=== PATIENT | female | born 1965 | race Caucasian/White ===

== ENCOUNTER 2021-07-27 04:39 | Day surgery (SDC) | payer OTHER ==
[2021-07-26 11:47] VITALS: BMI 24.2
[2021-07-27] MEDS ORDERED: SODIUM CHLORIDE 0.9% P/F 10 ML VIAL IJ ONE (10:44)
[2021-07-27] MEDS ORDERED: DEXAMETHASONE SOD PHOSPHATE 4 MG/1 ML VIAL ONE (10:44)
[2021-07-27] MEDS ORDERED: KETOROLAC TROMETHAMINE 30 MG/1 ML VIAL ONE (10:44)
[2021-07-27] MEDS ORDERED: LIDOCAINE HCL/PF 2% SDV 5ML VIAL ONE (10:44)
[2021-07-27] MEDS ORDERED: ceFAZolin SODIUM 1 GM VIAL ONE (10:44)
[2021-07-27] MEDS ORDERED: SUCCINYLCHOLINE CHLORIDE 200 MG/10 ML SYRINGE ONE (10:45)
[2021-07-27] MEDS ORDERED: MIDAZOLAM HCL 2 MG/2 ML SINGLE DOSE VIAL ONE ×2 (10:45)
[2021-07-27] MEDS ORDERED: PROPOFOL 20 ML ONE ×3 (10:45)
[2021-07-27] MEDS ORDERED: LIDOCAINE HCL 2% JELLY (5 ML/TUBE) ONE (11:09)
[2021-07-27] MEDS ORDERED: BUPIVACAINE HCL/PF 0.5% (5MG/ML) 10 ML VIAL ONE (11:09)
[2021-07-27] MEDS ORDERED: ceFAZolin SODIUM 1 GM VIAL IVPB ONE (11:30)
[2021-07-27] MEDS ORDERED: BUPIVACAINE HCL/PF 0.5% (5 MG/ML) 30 ML VIAL IJ ONE (13:07)
[2021-07-27] MEDS ORDERED: LIDOCAINE HCL 1%, 10 MG/ML (20ML VIAL) INF ONE (13:07)
[2021-07-27] MEDS ORDERED: LACTATED RINGERS SOLUTION 1,000 ML IV SCH (14:15)
[2021-07-27] MEDS ORDERED: ONDANSETRON 4 MG/2 ML VIAL IVPUSH PRN (14:15)
[2021-07-27] MEDS ORDERED: oxyCODONE HCL 5 MG TABLET PO PRN ×2 (14:15)
[2021-07-27 15:52] VITALS: TEMP 98
[2021-07-27 16:39] VITALS: BP 120/60; PULSE 64
== END 2021-07-27 16:15 | disposition home or self-care (01) ==
LOC: JASU-SURG 04:39
PROVIDERS: ATTEND Podiatrist Foot Surgery
PROC: 0QSN04Z Reposition Right Metatarsal with Internal Fixation Device, Open Approach (ICD-10-PCS; 2021-07-27)
PROC: 0QSN04Z Reposition Right Metatarsal with Internal Fixation Device, Open Approach (ICD-10-PCS; 2021-07-27)
PROC: 0QSN04Z Reposition Right Metatarsal with Internal Fixation Device, Open Approach (ICD-10-PCS; 2021-07-27)
PROC: 0QSN04Z Reposition Right Metatarsal with Internal Fixation Device, Open Approach (ICD-10-PCS; principal; 2021-07-27 11:00)
DX: M71.171 Other infective bursitis, right ankle and foot (principal); M21.6X9 Other acquired deformities of unspecified foot
CPT/HCPCS: 73630-TC-RT-FY; 94760

== ENCOUNTER 2022-07-26 04:23 | Day surgery (SDC) | payer OTHER ==
[2022-07-19 15:12] VITALS: BMI 24.2
[2022-07-26] MEDS ORDERED: PROPOFOL 20 ML ONE ×2 (13:14→14:08)
[2022-07-26] MEDS ORDERED: DEXAMETHASONE SOD PHOSPHATE 4 MG/1 ML VIAL ONE (13:14)
[2022-07-26] MEDS ORDERED: ONDANSETRON 4 MG/2 ML VIAL ONE (13:14)
[2022-07-26] MEDS ORDERED: LIDOCAINE HCL 1%, 10 MG/ML (20ML VIAL) ONE (13:32)
[2022-07-26] MEDS ORDERED: MIDAZOLAM HCL 2 MG/2 ML SINGLE DOSE VIAL ONE (13:55)
[2022-07-26] MEDS ORDERED: LIDOCAINE HCL 1%, 10 MG/ML (20ML VIAL) NR ONE (14:17)
[2022-07-26] MEDS ORDERED: BUPIVACAINE HCL/PF 0.5% (5MG/ML) 10 ML VIAL IJ ONE (14:17)
[2022-07-26 16:42] VITALS: TEMP 97.3
[2022-07-26 17:45] VITALS: BP 106/63; PULSE 65; RESP 16
== END 2022-07-26 17:15 | disposition home or self-care (01) ==
LOC: JASU-SURG 04:23
PROVIDERS: ATTEND Podiatrist Foot Surgery
PROC: 0KNW0ZZ Release Left Foot Muscle, Open Approach (ICD-10-PCS; principal; 2022-07-26 13:00)
DX: M72.2 Plantar fascial fibromatosis (principal)
CPT/HCPCS: 88304-TC; 94760

== ENCOUNTER 2024-09-28 16:06 | Inpatient (IN) | payer OTHER ==
[2024-09-28 16:15] VITALS: BMI 25.0
[2024-09-28] MEDS ORDERED: ACETAMINOPHEN INJECTION 100 ML ONE (17:08)
[2024-09-28] MEDS: SODIUM CHLORIDE 0.9% 500 ML INFUS.BAG IV ONE ×2 (17:15→19:11)
[2024-09-28] MEDS: ACETAMINOPHEN 1000 MG/100 ML BAG IVPB ONE (17:15)
[2024-09-28 17:16] LABS: BASO % 0.5 % (0-2.0); EOS % 0.3 % (0-4.5); HEMATOCRIT 35.9 % (32.4-45.2); HEMOGLOBIN 11.9 GM/dL (10.7-15.3); LYMPH % 10.1 % (8-40); MCH 31.2 pg (25.7-33.7); MCHC 33.2 g/dl (32.0-36.0); MEAN PLT VOLUME 8.5 fl (7.5-11.1); MONO % 6.3 % (3.8-10.2); NEUT % 82.8 % (42.8-82.8); PLATELET COUNT 196 10^3/uL (134-434); RBC 3.82 M/mm3 (3.60-5.2); RDW 12.9 % (11.6-15.6); WHITE BLOOD COUNT 13.9 K/mm3 (4.0-10.0)
[2024-09-28 17:33] LABS: POTASSIUM 3.7 mmol/L (3.5-5.1)
[2024-09-28 17:35] LABS: CALCIUM 8.9 mg/dL (8.5-10.1)
[2024-09-28 17:36] LABS: ALBUMIN 3.2 g/dl (3.4-5.0); BLOOD UREA NITROGEN 15.1 mg/dL (7-18)
[2024-09-28 17:39] LABS: CREATININE 1.1 mg/dL (0.55-1.3)
[2024-09-28 17:41] LABS: BILIRUBIN,TOTAL 0.9 mg/dL (0.2-1); TOT PROT 6.8 g/dl (6.4-8.2)
[2024-09-28 18:37] LABS: EPI CELLS 12 /uL (0-25.1); HYALINE CASTS 718 /uL (0-3.1); URINE APPEARANCE TURBID; URINE BACTERIA >9,000 /uL (0-1359); URINE BILIRUBIN 1+ (NEGATIVE); URINE COLOR ORANGE; URINE GLUCOSE (UA) NEGATIVE (NEGATIVE); URINE KETONE TRACE (NEGATIVE); URINE LEUK ESTERASE 3+ (NEGATIVE); URINE NITRITE NEGATIVE (NEGATIVE); URINE PROTEIN 3+ (NEGATIVE); URINE WBC 28641 /uL (0-25.8)
[2024-09-28] MEDS ORDERED: PIPERACILLIN/TAZOB 4.5 GM 4.5 GM/100 ML BAG IVPB ONE (19:03)
[2024-09-28] MEDS: PIPERACILLIN/TAZOB 4.5 GM 4.5 GM in DEXTROSE 5%-WATER 100 ML IVPB ONE (19:11)
[2024-09-28 19:28] LABS: URINE RBC 1407.7 /uL (0-23.9); YEAST NONE SEEN (NEGATIVE)
[2024-09-28] MEDS ORDERED: VANCOMYCIN 1 GRAM (PRE-DOCKED) 1,000 MG/250 ML BAG IVPB ONE (19:46)
[2024-09-28] MEDS: VANCOMYCIN 1,000 MG in DEXTROSE 5%-WATER - 250 ML IVPB ONE (19:59)
[2024-09-28] MEDS ORDERED: DOCUSATE SODIUM 100 MG CAPSULE (FP) PO PRN (20:29)
[2024-09-28] MEDS: LACTATED RINGERS SOLUTION 1000 ML INFUS.BAG IV ONE (21:19)
[2024-09-28] MEDS: D5-1/2NS+20 MEQ KCL - 20 MEQ/1,000 ML INFUS.BAG IV SCH (21:56)
[2024-09-28] MEDS ORDERED: ACETAMINOPHEN 325 MG TABLET (FP) ONE (23:13)
[2024-09-28] MEDS: ACETAMINOPHEN 325 MG TABLET (FP) PO PRN (23:19)
[2024-09-29] MEDS ORDERED: PIPERACILLIN/TAZOB 3.375 GM 3.375 GM/50 ML BAG IVPB ONE ×2 (03:53→09:50)
[2024-09-29] MEDS: PIPERACILLIN/TAZOB 3.375 GM 3.375 GM in DEXTROSE 5%-WATER - 50 ML IVPB SCH (03:56)
[2024-09-29 07:18] LABS: HEMATOCRIT 31.8 % (32.4-45.2); HEMOGLOBIN 10.8 GM/dL (10.7-15.3); MCH 31.9 pg (25.7-33.7); MCHC 34.1 g/dl (32.0-36.0); MEAN CELL VOLUME 93.6 fl (80-96); MEAN PLT VOLUME 8.7 fl (7.5-11.1); PLATELET COUNT 156 10^3/uL (134-434); WHITE BLOOD COUNT 9.5 K/mm3 (4.0-10.0)
[2024-09-29 07:30] LABS: POTASSIUM 3.6 mmol/L (3.5-5.1)
[2024-09-29 07:35] LABS: CALCIUM 8.3 mg/dL (8.5-10.1)
[2024-09-29 07:36] LABS: BLOOD UREA NITROGEN 13.2 mg/dL (7-18)
[2024-09-29 07:39] LABS: CREATININE 0.9 mg/dL (0.55-1.3)
[2024-09-29 07:41] LABS: BILIRUBIN,TOTAL 1.2 mg/dL (0.2-1); TOT PROT 5.6 g/dl (6.4-8.2)
[2024-09-29 07:51] LABS: ALBUMIN 2.5 g/dl (3.4-5.0)
[2024-09-29] MEDS ORDERED: VANCOMYCIN 1,000 MG in DEXTROSE 5%-WATER - 250 ML IVPB SCH (08:00)
[2024-09-29] MEDS ORDERED: VANCOMYCIN 1 GRAM (PRE-DOCKED) 1,000 MG/250 ML BAG IVPB ONE (09:50)
[2024-09-29] MEDS ORDERED: ACETAMINOPHEN 325 MG TABLET (FP) ONE (09:50)
[2024-09-29] MEDS: VANCOMYCIN 1,000 MG in DEXTROSE 5%-WATER - 250 ML IVPB SCH (11:16)
[2024-09-29 13:27] LABS: ANISOCYTOSIS 0; MACROCYTOSIS 0
[2024-09-29] MEDS: HEPARIN NA (PORCINE) 5,000 UNITS/ML 1ML VIAL SQ SCH (13:35)
[2024-09-29] MEDS: IBUPROFEN 400 MG TABLET (FP) PO ONE (16:52)
[2024-09-29] MEDS: VANCOMYCIN/WATER FOR INJ (PEG) 1,000 MG/200 ML BAG IVPB SCH (22:44)
[2024-09-30 06:42] VITALS: PULSE 77
[2024-09-30] MEDS ORDERED: PIPERACILLIN/TAZOB 3.375 GM 3.375 GM in DEXTROSE 5%-WATER - 50 ML IVPB SCH ×2 (07:07→10:00)
[2024-09-30] MEDS: PIPERACILLIN/TAZOB 3.375 GM 3.375 GM in DEXTROSE 5%-WATER - 50 ML IVPB SCH (08:14)
[2024-09-30 09:00] LABS: HEMATOCRIT 31.4 % (32.4-45.2); HEMOGLOBIN 10.7 GM/dL (10.7-15.3); MCH 31.7 pg (25.7-33.7); MCHC 34.1 g/dl (32.0-36.0); MEAN CELL VOLUME 93.2 fl (80-96); MEAN PLT VOLUME 8.9 fl (7.5-11.1); PLATELET COUNT 164 10^3/uL (134-434); RBC 3.37 M/mm3 (3.60-5.2); RDW 13.3 % (11.6-15.6); WHITE BLOOD COUNT 5.7 K/mm3 (4.0-10.0)
[2024-09-30 09:18] LABS: POTASSIUM 3.7 mmol/L (3.5-5.1)
[2024-09-30 09:23] LABS: ALBUMIN 2.5 g/dl (3.4-5.0); BLOOD UREA NITROGEN 11.4 mg/dL (7-18); CALCIUM 8.5 mg/dL (8.5-10.1)
[2024-09-30 09:26] LABS: CREATININE 0.8 mg/dL (0.55-1.3)
[2024-09-30 09:28] LABS: BILIRUBIN,TOTAL 0.6 mg/dL (0.2-1); TOT PROT 5.7 g/dl (6.4-8.2)
[2024-09-30] MEDS: PIPERACILLIN/TAZOB 3.375 GM 50 ML IVPB SCH (11:29)
[2024-09-30 15:06] VITALS: BP 106/64; RESP 16; TEMP 98.8
== END 2024-09-30 16:10 | disposition left against medical advice (07) | DRG 872 ==
LOC: JER 16:06 → JERBED 20:07 → J4W 09-29 13:02
PROVIDERS: ADMIT Internal Medicine; ATTEND Family Medicine
DX: A41.9 Sepsis, unspecified organism (principal); N10 Acute pyelonephritis; F17.210 Nicotine dependence, cigarettes, uncomplicated; E78.5 Hyperlipidemia, unspecified
CPT/HCPCS: 36415; 74177-TC; 80053; 81003; 83735; 85025; 85027; 87086; 87186; 93005; 93010; 99285-25; J0131; J1644; Q9967

== ENCOUNTER 2024-10-01 10:41 | Observation (INO) | payer OTHER ==
[2024-10-01] MEDS ORDERED: MEROPENEM 1 GM VIAL (RESTRICTED TO ID) IVPB ONE (12:10)
[2024-10-01 12:53] LABS: EOS % 1.9 % (0-4.5); LYMPH % 29.5 % (8-40); MCH 31.2 pg (25.7-33.7); MCHC 33.4 g/dl (32.0-36.0); MEAN CELL VOLUME 93.4 fl (80-96); MEAN PLT VOLUME 8.2 fl (7.5-11.1); MONO % 11.9 % (3.8-10.2); NEUT % 55.7 % (42.8-82.8); PLATELET COUNT 212 10^3/uL (134-434); RBC 3.21 M/mm3 (3.60-5.2); RDW 13.6 % (11.6-15.6)
[2024-10-01] MEDS: MEROPENEM 1 GM in DEXTROSE 5%-WATER 100 ML IVPB ONE (13:00)
[2024-10-01 13:17] LABS: POTASSIUM 3.6 mmol/L (3.5-5.1)
[2024-10-01 13:20] LABS: ALBUMIN 2.7 g/dl (3.4-5.0); CALCIUM 8.8 mg/dL (8.5-10.1)
[2024-10-01 13:23] LABS: CREATININE 0.7 mg/dL (0.55-1.3)
[2024-10-01 13:25] LABS: BILIRUBIN,TOTAL 0.6 mg/dL (0.2-1); TOT PROT 6.2 g/dl (6.4-8.2)
[2024-10-01 13:29] LABS: EPI CELLS 29 /uL (0-25.1); HYALINE CASTS 0 /uL (0-3.1); URINE APPEARANCE CLOUDY; URINE BACTERIA 1 /uL (0-1359); URINE BILIRUBIN NEGATIVE (NEGATIVE); URINE COLOR DK YELLOW; URINE GLUCOSE (UA) NEGATIVE (NEGATIVE); URINE KETONE NEGATIVE (NEGATIVE); URINE LEUK ESTERASE 2+ (NEGATIVE); URINE NITRITE NEGATIVE (NEGATIVE); URINE PROTEIN 1+ (NEGATIVE); URINE RBC 1165 /uL (0-23.9); URINE WBC 216 /uL (0-25.8)
[2024-10-01] MEDS ORDERED: PIPERACILLIN/TAZOB 4.5 GM 4.5 GM/100 ML BAG IVPB ONE (18:10)
[2024-10-01] MEDS: PIPERACILLIN/TAZOB 4.5 GM 4.5 GM in DEXTROSE 5%-WATER 100 ML IVPB SCH (18:27)
[2024-10-02] MEDS ORDERED: PIPERACILLIN/TAZOB 4.5 GM 4.5 GM/100 ML BAG IVPB ONE (01:53)
[2024-10-02 05:11] VITALS: BMI 24.5
[2024-10-02 09:52] LABS: HEMOGLOBIN 9.5 GM/dL (10.7-15.3); MCH 31.2 pg (25.7-33.7); MCHC 33.9 g/dl (32.0-36.0); MEAN PLT VOLUME 8.3 fl (7.5-11.1); PLATELET COUNT 192 10^3/uL (134-434); RBC 3.04 M/mm3 (3.60-5.2); RDW 13.5 % (11.6-15.6)
[2024-10-02 10:13] LABS: POTASSIUM 3.3 mmol/L (3.5-5.1)
[2024-10-02 10:34] LABS: ANISOCYTOSIS 0; MACROCYTOSIS 0
[2024-10-02 10:53] LABS: ALBUMIN 2.4 g/dl (3.4-5.0); BLOOD UREA NITROGEN 9.7 mg/dL (7-18); CALCIUM 8.6 mg/dL (8.5-10.1)
[2024-10-02 10:57] LABS: CREATININE 0.6 mg/dL (0.55-1.3)
[2024-10-02 10:58] LABS: BILIRUBIN,TOTAL 0.5 mg/dL (0.2-1); TOT PROT 5.8 g/dl (6.4-8.2)
[2024-10-02] MEDS ORDERED: MEROPENEM 1 GM in DEXTROSE 5%-WATER 100 ML IVPB SCH (11:00)
[2024-10-02] MEDS: PIPERACILLIN/TAZOB 4.5 GM 4.5 GM in DEXTROSE 5%-WATER 100 ML IVPB SCH (11:48)
[2024-10-02] MEDS: MEROPENEM-0.9% SODIUM CHLORIDE 1 GM/50 ML BAG IVPB SCH (11:49)
[2024-10-02] MEDS: POTASSIUM CHLORIDE ORAL LIQUID 20 MEQ/15 ML PO ONE (17:26)
[2024-10-03] MEDS: ENOXAPARIN NA (PORCINE) 40 MG/0.4 ML DISP.SYRIN SQ SCH (09:53)
[2024-10-03 10:46] LABS: BASO % 1.1 % (0-2.0); EOS % 3.4 % (0-4.5); HEMATOCRIT 30.6 % (32.4-45.2); HEMOGLOBIN 10.5 GM/dL (10.7-15.3); LYMPH % 34.7 % (8-40); MCHC 34.2 g/dl (32.0-36.0); MEAN CELL VOLUME 93.5 fl (80-96); MEAN PLT VOLUME 8.4 fl (7.5-11.1); MONO % 11.4 % (3.8-10.2); NEUT % 49.4 % (42.8-82.8); PLATELET COUNT 261 10^3/uL (134-434); RBC 3.27 M/mm3 (3.60-5.2); RDW 13.6 % (11.6-15.6); WHITE BLOOD COUNT 4.5 K/mm3 (4.0-10.0)
[2024-10-03 11:26] LABS: POTASSIUM 3.7 mmol/L (3.5-5.1)
[2024-10-03 11:32] LABS: ALBUMIN 2.7 g/dl (3.4-5.0); BLOOD UREA NITROGEN 8.5 mg/dL (7-18)
[2024-10-03 11:35] LABS: CREATININE 0.6 mg/dL (0.55-1.3)
[2024-10-03 11:37] LABS: BILIRUBIN,TOTAL 0.5 mg/dL (0.2-1); TOT PROT 6.5 g/dl (6.4-8.2)
[2024-10-04 00:12] VITALS: PULSE 62; RESP 17
[2024-10-04 06:43] VITALS: BP 91/61; TEMP 98.2
== END 2024-10-04 15:36 | disposition home or self-care (01) ==
LOC: JER 10:41 → JERBED 13:50 → INTOOBSV 13:50 → UNDOADMOB 13:50 → JERBED 18:50 → J8W 10-02 04:35
PROVIDERS: ADMIT Internal Medicine; ATTEND Internal Medicine
PROC: 3E03329 Introduction of Other Anti-infective into Peripheral Vein, Percutaneous Approach (ICD-10-PCS; principal; 2024-10-01)
PROC: 3E023GC Introduction of Other Therapeutic Substance into Muscle, Percutaneous Approach (ICD-10-PCS; 2024-10-01)
DX: N30.00 Acute cystitis without hematuria (principal); B96.20 Unspecified Escherichia coli [E. coli] as the cause of diseases classified elsewhere; N12 Tubulo-interstitial nephritis, not specified as acute or chronic; N31.9 Neuromuscular dysfunction of bladder, unspecified; E78.5 Hyperlipidemia, unspecified; Z87.440 Personal history of urinary (tract) infections; F17.200 Nicotine dependence, unspecified, uncomplicated
CPT/HCPCS: 36415; 80053; 81003; 85025; 87040; 87086; 99285-25; G0378

== ENCOUNTER → 2024-10-09 | Day surgery (SDC) | payer OTHER ==
[2024-10-13 09:29] VITALS: BP 99/58; PULSE 81; RESP 18; TEMP 98.1
== END | disposition home or self-care (01) ==
LOC: FINFUSION 11:40
PROVIDERS: ATTEND Internal Medicine
DX: N12 Tubulo-interstitial nephritis, not specified as acute or chronic (principal); N39.0 Urinary tract infection, site not specified
CPT/HCPCS: 96365

== ENCOUNTER 2024-10-10 11:24 | Day surgery (SDC) | payer OTHER ==
[2024-10-10 11:42] VITALS: BP 128/75; PULSE 84; RESP 18; TEMP 97.8
[2024-10-10] MEDS: ERTAPENEM SODIUM 1 GM in SODIUM CHLORIDE 50 ML IVPB ONE (11:54)
== END 2024-10-10 12:57 | disposition home or self-care (01) ==
LOC: FINFUSION 11:24 → FM/S 11:27 → FINFUSION 12:57
PROVIDERS: ATTEND Internal Medicine
DX: N12 Tubulo-interstitial nephritis, not specified as acute or chronic (principal); N39.0 Urinary tract infection, site not specified
CPT/HCPCS: 96365

== ENCOUNTER 2024-10-11 11:23 | Day surgery (SDC) | payer OTHER ==
[2024-10-11] MEDS: ERTAPENEM SODIUM 1 GM in SODIUM CHLORIDE 50 ML IVPB ONE (11:43)
[2024-10-11 12:22] VITALS: BP 100/65; PULSE 75; RESP 16; TEMP 98.2
== END 2024-10-11 12:23 | disposition home or self-care (01) ==
LOC: FINFUSION 11:23 → FM/S 11:25 → FINFUSION 12:23
PROVIDERS: ATTEND Internal Medicine
DX: N12 Tubulo-interstitial nephritis, not specified as acute or chronic (principal); N39.0 Urinary tract infection, site not specified
CPT/HCPCS: 96365

== ENCOUNTER 2024-10-12 11:34 | Day surgery (SDC) | payer OTHER ==
[2024-10-12] MEDS: ERTAPENEM SODIUM 1 GM in SODIUM CHLORIDE 50 ML IVPB ONE (12:00)
[2024-10-12 12:45] VITALS: BP 92/56; PULSE 71; RESP 17; TEMP 98
== END 2024-10-12 12:35 | disposition home or self-care (01) ==
LOC: FINFUSION 11:34 → FM/S 11:36 → FINFUSION 12:35
PROVIDERS: ATTEND Internal Medicine
DX: N12 Tubulo-interstitial nephritis, not specified as acute or chronic (principal); N39.0 Urinary tract infection, site not specified
CPT/HCPCS: 96365

== ENCOUNTER 2024-10-13 11:32 | Day surgery (SDC) | payer OTHER ==
[2024-10-13] MEDS: ERTAPENEM SODIUM 1 GM in SODIUM CHLORIDE 50 ML IVPB ONE (12:15)
[2024-10-13 12:29] LABS: HEMATOCRIT 34.1 % (32.4-45.2); HEMOGLOBIN 11.2 G/dL (10.7-15.3); MCH 31.2 pg (25.7-33.7); MCHC 32.9 g/dl (32.0-36.0); MEAN PLT VOLUME 8.4 fl (7.5-11.1); PLATELET COUNT 395.1 10^3/uL (134-434); RBC 3.59 10^6/uL (3.60-5.2); RDW 14.3 % (11.6-15.6); WHITE BLOOD COUNT 4.6 10^3/uL (4.0-10.8)
[2024-10-13 13:13] VITALS: BP 93/59; PULSE 63; RESP 18; TEMP 97.8
[2024-10-13 16:52] LABS: BILIRUBIN,TOTAL 0.4 mg/dl (0.2-1); CALCIUM 9.6 mg/dl (8.5-10.1); CREATININE 0.8 mg/dl (0.6-1.3); POTASSIUM 4.2 mmol/L (3.5-5.1); TOT PROT 6.9 g/dl (6.4-8.2)
== END 2024-10-13 12:50 | disposition home or self-care (01) ==
LOC: FINFUSION 11:32 → FM/S 11:33 → FINFUSION 12:50
PROVIDERS: ATTEND Internal Medicine
DX: N12 Tubulo-interstitial nephritis, not specified as acute or chronic (principal); N39.0 Urinary tract infection, site not specified
CPT/HCPCS: 36415; 80053; 85027; 96365

== ENCOUNTER 2024-10-14 11:33 | Day surgery (SDC) | payer OTHER ==
[2024-10-14] MEDS: ERTAPENEM SODIUM 1 GM in SODIUM CHLORIDE 50 ML IVPB ONE (12:02)
[2024-10-14 12:11] VITALS: TEMP 97.8
[2024-10-14 12:31] VITALS: BP 100/58; PULSE 76; RESP 19
== END 2024-10-14 12:32 | disposition home or self-care (01) ==
LOC: FINFUSION 11:33 → FM/S 11:34 → FINFUSION 12:32
PROVIDERS: ATTEND Internal Medicine
DX: N12 Tubulo-interstitial nephritis, not specified as acute or chronic (principal); N39.0 Urinary tract infection, site not specified
CPT/HCPCS: 96365

== ENCOUNTER 2024-10-15 11:34 | Day surgery (SDC) | payer OTHER ==
[2024-10-15 12:10] LABS: HEMOGLOBIN 10.7 G/dL (10.7-15.3); MCH 31.7 pg (25.7-33.7); MCHC 33.6 g/dl (32.0-36.0); MEAN CELL VOLUME 94.5 fl (80-96); MEAN PLT VOLUME 8.3 fl (7.5-11.1); PLATELET COUNT 332.2 10^3/uL (134-434); RBC 3.39 10^6/uL (3.60-5.2); RDW 13.8 % (11.6-15.6); WHITE BLOOD COUNT 4.5 10^3/uL (4.0-10.8)
[2024-10-15] MEDS: ERTAPENEM SODIUM 1 GM in SODIUM CHLORIDE 50 ML IVPB ONE (12:10)
[2024-10-15 12:51] VITALS: BP 109/80; PULSE 68; RESP 16; TEMP 98.2
[2024-10-15 16:49] LABS: ALBUMIN 3.9 g/dl (3.4-5.0); BILIRUBIN,TOTAL 0.3 mg/dl (0.2-1); CALCIUM 9.4 mg/dl (8.5-10.1); CREATININE 0.7 mg/dl (0.6-1.3); POTASSIUM 3.9 mmol/L (3.5-5.1); TOT PROT 6.6 g/dl (6.4-8.2)
== END 2024-10-15 12:55 | disposition home or self-care (01) ==
LOC: FINFUSION 11:34 → FM/S 11:37 → FINFUSION 12:55
PROVIDERS: ATTEND Internal Medicine
DX: N12 Tubulo-interstitial nephritis, not specified as acute or chronic (principal); N39.0 Urinary tract infection, site not specified
CPT/HCPCS: 36415; 80053; 85027; 96365

== ENCOUNTER 2024-10-16 11:31 | Day surgery (SDC) | payer OTHER ==
[2024-10-16] MEDS: ERTAPENEM SODIUM 1 GM in SODIUM CHLORIDE 50 ML IVPB SCH (11:45)
[2024-10-16 13:06] VITALS: BP 115/65; PULSE 69; RESP 16; TEMP 98.1
== END 2024-10-16 13:07 | disposition home or self-care (01) ==
LOC: FINFUSION 11:31 → FM/S 11:32 → FINFUSION 13:07
PROVIDERS: ATTEND Internal Medicine
DX: N12 Tubulo-interstitial nephritis, not specified as acute or chronic (principal); N39.0 Urinary tract infection, site not specified
CPT/HCPCS: 96365

== ENCOUNTER 2024-10-17 11:07 | Day surgery (SDC) | payer OTHER ==
[2024-10-17] MEDS: ERTAPENEM SODIUM 1 GM in SODIUM CHLORIDE 50 ML IVPB ONE (11:39)
[2024-10-17 12:37] VITALS: BP 98/55; PULSE 64; RESP 16; TEMP 98.4
== END 2024-10-17 12:25 | disposition home or self-care (01) ==
LOC: FINFUSION 11:07 → FM/S 11:07 → FINFUSION 12:25
PROVIDERS: ATTEND Internal Medicine
DX: N12 Tubulo-interstitial nephritis, not specified as acute or chronic (principal); N39.0 Urinary tract infection, site not specified
CPT/HCPCS: 96365

== ENCOUNTER 2024-10-18 11:28 | Day surgery (SDC) | payer OTHER ==
[2024-10-18] MEDS: ERTAPENEM SODIUM 1 GM in SODIUM CHLORIDE 50 ML IVPB ONE (11:40)
[2024-10-18 12:17] VITALS: BP 100/60; PULSE 72; RESP 18; TEMP 98.2
== END 2024-10-18 12:17 | disposition home or self-care (01) ==
LOC: FINFUSION 11:28 → FM/S 11:30 → FINFUSION 12:17
PROVIDERS: ATTEND Internal Medicine
DX: N12 Tubulo-interstitial nephritis, not specified as acute or chronic (principal); N39.0 Urinary tract infection, site not specified
CPT/HCPCS: 96365

== ENCOUNTER 2024-12-09 09:33 | Inpatient (IN) | payer OTHER ==
[2024-12-09 09:46] VITALS: BMI 24.2
[2024-12-09 11:08] LABS: EPI CELLS 3 /uL (0-25.1); HYALINE CASTS 0 /uL (0-3.1); PH,URINE 5.5 (5.0-8.0); URINE APPEARANCE CLOUDY; URINE BACTERIA >9,000 /uL (0-1359); URINE BILIRUBIN NEGATIVE (NEGATIVE); URINE COLOR DK YELLOW; URINE GLUCOSE (UA) NEGATIVE (NEGATIVE); URINE KETONE TRACE (NEGATIVE); URINE LEUK ESTERASE 2+ (NEGATIVE); URINE NITRITE POSITIVE (NEGATIVE); URINE PROTEIN 2+ (NEGATIVE); URINE WBC 2874 /uL (0-25.8)
[2024-12-09 11:41] LABS: YEAST NOT PRESENT (NEGATIVE)
[2024-12-09 11:42] LABS: URINE RBC 604 /uL (0-23.9)
[2024-12-09] MEDS ORDERED: CEFTRIAXONE 1 G/50 ML PREMIX 50 ML IVPB ONE (12:28)
[2024-12-09] MEDS ORDERED: ACETAMINOPHEN INJECTION 100 ML ONE (12:28)
[2024-12-09 12:31] LABS: BASO % 0.6 % (0-2.0); EOS % 0.7 % (0-4.5); HEMATOCRIT 36.4 % (32.4-45.2); HEMOGLOBIN 12.3 GM/dL (10.7-15.3); LYMPH % 16.8 % (8-40); MCH 31.2 pg (25.7-33.7); MCHC 33.8 g/dl (32.0-36.0); MEAN CELL VOLUME 92.4 fl (80-96); MEAN PLT VOLUME 8.2 fl (7.5-11.1); MONO % 9.2 % (3.8-10.2); NEUT % 72.7 % (42.8-82.8); PLATELET COUNT 173 10^3/uL (134-434); RBC 3.94 M/mm3 (3.60-5.2); RDW 13.8 % (11.6-15.6); WHITE BLOOD COUNT 9.7 K/mm3 (4.0-10.0)
[2024-12-09 12:34] LABS: VENOUS O2 SATURATION 37.7 % (70-80); VENOUS PCO2 42.8 mmHg (38-52); VENOUS PH 7.416 (7.310-7.410)
[2024-12-09 12:38] LABS: INR 1.08 (0.83-1.09); PROTHROMBIN TIME (PATIENT) 12.4 SEC (9.7-13.0)
[2024-12-09 12:41] LABS: ACTIVATED PTT 29.8 SECONDS (25.2-36.5)
[2024-12-09] MEDS: SODIUM CHLORIDE 0.9% 1000 ML INFUS.BAG IV STA (12:41)
[2024-12-09] MEDS: ACETAMINOPHEN 1000 MG/100 ML BAG IVPB ONE (12:41)
[2024-12-09] MEDS: CEFTRIAXONE 1,000 MG in DEXTROSE 5%-WATER - 50 ML IVPB ONE (12:41)
[2024-12-09] MEDS: CEPHALEXIN MONOHYDRATE 500 MG CAPSULE (UD) PO ONE (12:42)
[2024-12-09 12:57] LABS: CALCIUM 8.9 mg/dL (8.5-10.1)
[2024-12-09 12:58] LABS: ALBUMIN 3.3 g/dl (3.4-5.0); BLOOD UREA NITROGEN 13.5 mg/dL (7-18)
[2024-12-09 13:01] LABS: CREATININE 0.7 mg/dL (0.55-1.3)
[2024-12-09 13:03] LABS: BILIRUBIN,TOTAL 0.9 mg/dL (0.2-1); TOT PROT 7.2 g/dl (6.4-8.2)
[2024-12-09] MEDS ORDERED: NOREPINEPHRINE 0.9 % NACL 8 MG/250 ML BAG IVPB ONE (15:29)
[2024-12-09] MEDS ORDERED: MEROPENEM-0.9% SODIUM CHLORIDE 1 GM/50 ML BAG IVPB ONE (15:46)
[2024-12-09] MEDS: MEROPENEM 1 GM in DEXTROSE 5%-WATER 100 ML IVPB ONE (16:00)
[2024-12-09] MEDS: LACTATED RINGERS SOLUTION 1000 ML INFUS.BAG IV ONE (16:00)
[2024-12-09] MEDS: NOREPINEPHRINE BITARTRATE 4,000 MCG in DEXTROSE 5%-WATER - 496 ML IV SCH ×3 (16:01→16:42)
[2024-12-09] MEDS ORDERED: KETOROLAC TROMETHAMINE 15 MG/ML VIAL ONE (16:14)
[2024-12-09] MEDS ORDERED: NOREPINEPHRINE BITARTRATE 4 MG/4 ML ML IV ONE (16:30)
[2024-12-09] MEDS ORDERED: NOREPINEPHRINE BITARTRATE 4,000 MCG in DEXTROSE 5%-WATER - 496 ML IV SCH (16:30)
[2024-12-09] MEDS: KETOROLAC TROMETHAMINE 15 MG/ML VIAL IVPUSH ONE (16:43)
[2024-12-09] MEDS: NOREPINEPHRINE 0.9 % NACL 8 MG/250 ML BAG IVPB SCH (16:45)
[2024-12-09] MEDS ORDERED: MEROPENEM 1 GM in DEXTROSE 5%-WATER 100 ML IVPB SCH (18:00)
[2024-12-09] MEDS: MUPIROCIN 2% TOPICAL OINTMENT FOR DECOLONIZATION NS SCH (21:56)
[2024-12-09] MEDS: CHLORHEXIDINE GLUCONATE 4% CLEANSER FOR DECOLONIZATION TP SCH (21:56)
[2024-12-10] MEDS: ACETAMINOPHEN 1000 MG/100 ML BAG IVPB PRN ×2 (00:52→14:41)
[2024-12-10] MEDS: MEROPENEM-0.9% SODIUM CHLORIDE 1 GM/50 ML BAG IVPB SCH (00:53)
[2024-12-10 06:55] LABS: BASO % 0.7 % (0-2.0); EOS % 0.9 % (0-4.5); HEMATOCRIT 32.8 % (32.4-45.2); HEMOGLOBIN 10.8 GM/dL (10.7-15.3); LYMPH % 15.2 % (8-40); MCH 30.7 pg (25.7-33.7); MEAN CELL VOLUME 93.2 fl (80-96); MEAN PLT VOLUME 8.8 fl (7.5-11.1); MONO % 8.9 % (3.8-10.2); NEUT % 74.3 % (42.8-82.8); PLATELET COUNT 187 10^3/uL (134-434); RBC 3.51 M/mm3 (3.60-5.2); RDW 13.3 % (11.6-15.6)
[2024-12-10 07:16] LABS: POTASSIUM 3.6 mmol/L (3.5-5.1)
[2024-12-10 07:17] LABS: INR 1.11 (0.83-1.09); PROTHROMBIN TIME (PATIENT) 12.7 SEC (9.7-13.0)
[2024-12-10 07:22] LABS: ALBUMIN 2.7 g/dl (3.4-5.0); BLOOD UREA NITROGEN 8.9 mg/dL (7-18); CALCIUM 8.4 mg/dL (8.5-10.1); MAGNESIUM 1.8 mg/dL (1.8-2.4)
[2024-12-10 07:25] LABS: CREATININE 0.6 mg/dL (0.55-1.3)
[2024-12-10 07:27] LABS: BILIRUBIN,TOTAL 0.6 mg/dL (0.2-1); TOT PROT 6.1 g/dl (6.4-8.2)
[2024-12-10] MEDS ORDERED: NOREPINEPHRINE BITARTRATE 4 MG/4 ML ML IV ONE ×2 (08:37→09:44)
[2024-12-10] MEDS: LACTATED RINGERS SOLUTION 1000 ML INFUS.BAG IV ONE ×3 (10:22→15:04)
[2024-12-10] MEDS: MIDODRINE HCL 5 MG TABLET PO SCH (10:23)
[2024-12-10] MEDS: SODIUM CHLORIDE 500 ML IV STA (17:40)
[2024-12-10] MEDS ORDERED: SODIUM CHLORIDE 500 ML IV STA (18:25)
[2024-12-11 07:42] LABS: BASO % 1.2 % (0-2.0); EOS % 2.9 % (0-4.5); HEMATOCRIT 29.8 % (32.4-45.2); LYMPH % 29.7 % (8-40); MCH 31.1 pg (25.7-33.7); MCHC 33.6 g/dl (32.0-36.0); MEAN CELL VOLUME 92.5 fl (80-96); MEAN PLT VOLUME 9.1 fl (7.5-11.1); MONO % 10.6 % (3.8-10.2); NEUT % 55.6 % (42.8-82.8); PLATELET COUNT 171 10^3/uL (134-434); RBC 3.23 M/mm3 (3.60-5.2); RDW 13.6 % (11.6-15.6); WHITE BLOOD COUNT 4.5 K/mm3 (4.0-10.0)
[2024-12-11 08:25] LABS: CALCIUM 8.7 mg/dL (8.5-10.1)
[2024-12-11 08:26] LABS: ALBUMIN 2.5 g/dl (3.4-5.0); BLOOD UREA NITROGEN 6.9 mg/dL (7-18)
[2024-12-11 08:29] LABS: CREATININE 0.6 mg/dL (0.55-1.3)
[2024-12-11 08:30] LABS: BILIRUBIN,TOTAL 0.4 mg/dL (0.2-1); TOT PROT 5.7 g/dl (6.4-8.2)
[2024-12-11 19:36] VITALS: RESP 18
[2024-12-12 08:19] LABS: BASO % 1.1 % (0-2.0); EOS % 3.7 % (0-4.5); HEMATOCRIT 31.6 % (32.4-45.2); HEMOGLOBIN 10.9 GM/dL (10.7-15.3); LYMPH % 37.1 % (8-40); MCHC 34.5 g/dl (32.0-36.0); MEAN CELL VOLUME 92.7 fl (80-96); MEAN PLT VOLUME 8.8 fl (7.5-11.1); MONO % 9.5 % (3.8-10.2); NEUT % 48.6 % (42.8-82.8); PLATELET COUNT 210 10^3/uL (134-434); RDW 13.6 % (11.6-15.6); WHITE BLOOD COUNT 4.3 K/mm3 (4.0-10.0)
[2024-12-12 08:35] LABS: ALBUMIN 2.9 g/dl (3.4-5.0); BLOOD UREA NITROGEN 6.2 mg/dL (7-18)
[2024-12-12 08:38] LABS: CREATININE 0.6 mg/dL (0.55-1.3)
[2024-12-12 08:39] LABS: BILIRUBIN,TOTAL 0.4 mg/dL (0.2-1); TOT PROT 6.5 g/dl (6.4-8.2)
[2024-12-12] MEDS: MEROPENEM-0.9% SODIUM CHLORIDE 1 GM/50 ML BAG IVPB SCH (10:04)
[2024-12-12] MEDS: SODIUM CHLORIDE 500 ML IV STA (10:04)
[2024-12-12] MEDS: MIDODRINE HCL 5 MG TABLET PO SCH (10:04)
[2024-12-13 10:06] LABS: EOS % 2.9 % (0-4.5); HEMOGLOBIN 10.6 GM/dL (10.7-15.3); LYMPH % 36.2 % (8-40); MCH 31.5 pg (25.7-33.7); MCHC 34.3 g/dl (32.0-36.0); MEAN CELL VOLUME 91.9 fl (80-96); MEAN PLT VOLUME 8.7 fl (7.5-11.1); MONO % 6.7 % (3.8-10.2); NEUT % 53.2 % (42.8-82.8); PLATELET COUNT 218 10^3/uL (134-434); RBC 3.37 M/mm3 (3.60-5.2); RDW 13.3 % (11.6-15.6); WHITE BLOOD COUNT 3.7 K/mm3 (4.0-10.0)
[2024-12-13 11:30] LABS: POTASSIUM 3.8 mmol/L (3.5-5.1)
[2024-12-13 11:33] LABS: ALBUMIN 2.9 g/dl (3.4-5.0); BLOOD UREA NITROGEN 6.8 mg/dL (7-18); CALCIUM 9.3 mg/dL (8.5-10.1)
[2024-12-13 11:36] LABS: CREATININE 0.6 mg/dL (0.55-1.3)
[2024-12-13 11:37] LABS: BILIRUBIN,TOTAL 0.4 mg/dL (0.2-1)
[2024-12-13 11:39] LABS: TOT PROT 6.4 g/dl (6.4-8.2)
[2024-12-13 13:45] VITALS: BP 104/54; PULSE 58; TEMP 97.7
== END 2024-12-13 14:40 | disposition left against medical advice (07) | DRG 871 ==
LOC: JER 09:33 → JERBED 14:25 → JICU 18:45 → J5S 12-12 08:04
PROVIDERS: ADMIT Internal Medicine; ATTEND Family Medicine
DX: A41.89 Other specified sepsis (principal); R65.21 Severe sepsis with septic shock; N39.0 Urinary tract infection, site not specified; N12 Tubulo-interstitial nephritis, not specified as acute or chronic; B96.20 Unspecified Escherichia coli [E. coli] as the cause of diseases classified elsewhere; I10 Essential (primary) hypertension; N31.9 Neuromuscular dysfunction of bladder, unspecified; R01.1 Cardiac murmur, unspecified; K59.00 Constipation, unspecified; H90.3 Sensorineural hearing loss, bilateral; I95.9 Hypotension, unspecified; R33.9 Retention of urine, unspecified
CPT/HCPCS: 0241U-QW; 36415; 74176-TC; 80053; 81003; 82803; 83605; 83735; 84484; 85025; 85610; 85730; 86850; 86900; 86901; 87040; 87086; 87186; 87481; 93005; 93010; 99285-25; J0131

== ENCOUNTER 2025-07-15 13:39 | Day surgery (SDC) | payer OTHER ==
[2025-07-15] MEDS: ERTAPENEM SODIUM 1 GM in SODIUM CHLORIDE 50 ML IVPB ONE (13:57)
[2025-07-15 14:19] VITALS: BP 100/52; PULSE 67; RESP 18; TEMP 97.8
== END 2025-07-15 14:32 | disposition home or self-care (01) ==
LOC: FINFUSION 13:39 → FM/S 13:41 → FINFUSION 14:32
PROVIDERS: ATTEND Internal Medicine
DX: N39.0 Urinary tract infection, site not specified (principal); Z16.12 Extended spectrum beta lactamase (ESBL) resistance
CPT/HCPCS: 96365

== ENCOUNTER 2025-07-16 13:47 | Day surgery (SDC) | payer OTHER ==
[2025-07-16] MEDS: ERTAPENEM SODIUM 1 GM in SODIUM CHLORIDE 50 ML IVPB SCH (14:42)
[2025-07-16 15:31] VITALS: BP 117/74; PULSE 69; RESP 16; TEMP 98.3
== END 2025-07-16 15:32 | disposition home or self-care (01) ==
LOC: FINFUSION 13:47 → FM/S 13:48 → FINFUSION 15:32
PROVIDERS: ATTEND Internal Medicine
DX: N39.0 Urinary tract infection, site not specified (principal); Z16.12 Extended spectrum beta lactamase (ESBL) resistance
CPT/HCPCS: 96365

== ENCOUNTER 2025-07-17 13:41 | Day surgery (SDC) | payer OTHER ==
[2025-07-17] MEDS: ERTAPENEM SODIUM 1 GM in SODIUM CHLORIDE 50 ML IVPB SCH (14:01)
[2025-07-17 15:16] VITALS: BP 135/64; PULSE 82; RESP 16; TEMP 97.8
== END 2025-07-17 17:54 | disposition home or self-care (01) ==
LOC: FINFUSION 13:41 → FM/S 13:45 → FINFUSION 17:54
PROVIDERS: ATTEND Internal Medicine
DX: N39.0 Urinary tract infection, site not specified (principal); Z16.12 Extended spectrum beta lactamase (ESBL) resistance
CPT/HCPCS: 96365

== ENCOUNTER 2025-07-22 14:47 | Day surgery (SDC) | payer OTHER ==
[2025-07-22] MEDS: ERTAPENEM SODIUM 1 GM in SODIUM CHLORIDE 50 ML IVPB ONE (15:03)
[2025-07-22 16:47] VITALS: BP 109/68; PULSE 76; RESP 18; TEMP 98.4
== END 2025-07-22 16:48 | disposition home or self-care (01) ==
LOC: FINFUSION 14:47 → FM/S 14:49 → FINFUSION 16:48
PROVIDERS: ATTEND Internal Medicine
DX: N39.0 Urinary tract infection, site not specified (principal); Z16.12 Extended spectrum beta lactamase (ESBL) resistance
CPT/HCPCS: 96365

== ENCOUNTER 2025-07-23 14:20 | Day surgery (SDC) | payer OTHER ==
[2025-07-23] MEDS: ERTAPENEM SODIUM 1 GM in SODIUM CHLORIDE 50 ML IVPB SCH (14:40)
[2025-07-23 15:29] VITALS: BP 110/62; PULSE 70; RESP 18; TEMP 97.7
== END 2025-07-23 15:15 | disposition home or self-care (01) ==
LOC: FINFUSION 14:20 → FM/S 14:21 → FINFUSION 15:15
PROVIDERS: ATTEND Internal Medicine
DX: N39.0 Urinary tract infection, site not specified (principal); Z16.12 Extended spectrum beta lactamase (ESBL) resistance
CPT/HCPCS: 96365

== ENCOUNTER 2025-07-24 13:37 | Day surgery (SDC) | payer OTHER ==
[2025-07-24] MEDS: ERTAPENEM SODIUM 1 GM in SODIUM CHLORIDE 50 ML IVPB ONE (14:04)
[2025-07-24 17:33] VITALS: BP 107/68; PULSE 68; RESP 16; TEMP 97.7
== END 2025-07-24 17:33 | disposition home or self-care (01) ==
LOC: FINFUSION 13:37 → FM/S 13:38 → FINFUSION 17:33
PROVIDERS: ATTEND Internal Medicine
DX: N39.0 Urinary tract infection, site not specified (principal)
CPT/HCPCS: 96365